=== PATIENT | female | born 1990 | race Caucasian/White ===

== ENCOUNTER 2023-07-13 07:30 | Outpatient (CLI) | payer MEDICAID ==
[~2023-07-13 07:30] MED LIST: iohexol 300mg/ml 100ml inj. ONE
== END 2023-07-13 23:59 | disposition home or self-care (01) ==
LOC: RAD 07:30
PROVIDERS: ATTEND Internal Medicine Hematology & Oncology
DX: C50.412 Malignant neoplasm of upper-outer quadrant of left female breast (principal); Z17.0 Estrogen receptor positive status [ER+]; R16.0 Hepatomegaly, not elsewhere classified; R60.9 Edema, unspecified
CPT/HCPCS: 71260; 74177; J3490; Q9967

== ENCOUNTER 2023-12-15 08:04 | Inpatient (IN) | payer MEDICAID ==
[2023-12-09 16:13] LABS: BASOPHILS # (AUTO) 0.1 X10'3 (0-0.2); BASOPHILS % (AUTO) 0.7 % (0-1); EOSINOPHILS # (AUTO) 0.2 X10'3 (0-0.9); EOSINOPHILS % (AUTO) 2.4 % (0-6); LYMPHOCYTES # (AUTO) 2.3 X10'3 (1.1-4.8); LYMPHOCYTES % (AUTO) 29.3 % (21-51); MEAN CORPUSCULAR HEMOGLOBIN 29.1 PG (27.0-31.0); MEAN CORPUSCULAR HGB CONC 33.6 g/dL (33.0-36.5); MEAN CORPUSCULAR VOLUME 86.5 FL (78-98); MEAN PLATELET VOLUME 7.1 FL (7.4-10.4); MONOCYTES # (AUTO) 0.6 X10'3 (0-0.9); MONOCYTES % (AUTO) 7.5 % (2-12); NEUTROPHILS # (AUTO) 4.7 X10'3 (1.8-7.7); NEUTROPHILS % (AUTO) 60.1 % (42-75); PRE OP HEMATOCRIT 38.1 % (35.0-45.0); PRE OP HEMOGLOBIN 12.8 g/dL (12.0-16.0); PRE OP PLATELET COUNT 273 X10'3 (140-440); PRE OP WHITE BLOOD COUNT 7.7 10'3 (4.8-10.8); RED BLOOD COUNT 4.41 X10'6 (4.20-5.60); RED CELL DISTRIBUTION WIDTH 17.3 % (11.5-14.5)
[2023-12-09 16:39] LABS: ALBUMIN 3.6 G/DL (3.4-5.0); ALBUMIN/GLOBULIN RATIO 1.2 (1.1-1.5); ALKALINE PHOSPHATASE 43 IU/L (46-116); BLOOD UREA NITROGEN 14 MG/DL (7-18); BUN/CREATININE RATIO 16.1 (10.0-20.0); CALCIUM 8.9 MG/DL (8.5-10.1); CHLORIDE 105 MMOL/L (99-107); CREATININE 0.87 MG/DL (0.40-0.90); PRE OP ALT 14 U/L (30-65); PRE OP ANION GAP 7 (8-16); PRE OP AST 18 U/L (10-37); PRE OP BILIRUB, TOTAL 0.6 MG/DL (0.0-1.0); PRE OP GLUCOSE 71 MG/DL (70-104); PRE OP INR 1.1 INR; PRE OP POTASSIUM 3.9 MMOL/L (3.4-5.1); PRE OP PROTIME 11.9 SECONDS (9.0-12.0); PRE OP SODIUM 141 MMOL/L (135-145); TOTAL CARBON DIOXIDE 29.5 MMOL/L (24-32); TOTAL PROTEIN 6.6 G/DL (6.4-8.2); eGFR 75 ML/MIN
[2023-12-09 16:46] LABS: HCG SERUM QL NEGATIVE
[~2023-12-15] VITALS: Ht 157.5 cm; Wt 61.4 kg
[2023-12-15] VITALS (23 sets, daily range): BP systolic 96–117; BP diastolic 63–83; PULSE 63–101; RESP 11–24; TEMP 98–98.2; O2SAT 95–99
[2023-12-15] MEDS: NORMAL SALINE IV ONE (05:30)
[2023-12-15] MEDS: GENTAMICIN IV ONE (05:30)
[~2023-12-15 08:04] MED LIST changes: +GABA-530 PO; +HYDR-3965 PO; -iohexol 300mg/ml 100ml inj. ONE
[2023-12-15] MEDS: ringers solution, lacted 1,000 ML IV SCH ×3 (08:51→15:10)
[2023-12-15] MEDS: famotidine 20mg tablet PO ONE (08:51)
[2023-12-15] MEDS: clindamycin-Cleocin 900mg/D5W 50 ML IV ONE (09:08)
[2023-12-15] MEDS: BUPIVAcaine 2.5mg/ml inj 50ml vial (contains preservative) ONE (09:37)
[2023-12-15] MEDS: BUPIVACAINE liposomal/PF 13.3 MG/ML vial IM ONE (09:37)
[2023-12-15] MEDS: methylene blue (5mg/ml) 50mg/10ml ampul IV ONE (09:37)
[2023-12-15] MEDS ORDERED: dexamethasone sod phosphate 4mg/ml inj. ONE ×2 (10:03→11:13)
[2023-12-15] MEDS ORDERED: propofol inj 20 ML IV ONE (10:03)
[2023-12-15] MEDS ORDERED: fentaNYL/PF 50MCG/1 ML 2ML syringe ONE ×2 (10:03→11:03)
[2023-12-15] MEDS ORDERED: LIDOcaine 2% (20mg/ml) 5ml vial ONE (10:03)
[2023-12-15] MEDS ORDERED: ROPIVAcaine 0.5% (5mg/ml) 30ml vial ONE ×3 (10:03)
[2023-12-15] MEDS ORDERED: rocuronium 10mg/ml inj IV ONE ×3 (10:04→13:08)
[2023-12-15] MEDS ORDERED: sevoflurane 250ml liquid IH ONE (10:10)
[2023-12-15] MEDS ORDERED: neostigmine methylsulfate 1 MG/ML 10ml vial ONE (14:10)
[2023-12-15] MEDS ORDERED: glycopyrrolate 0.2mg/ml inj ONE (14:10)
[2023-12-15] MEDS ORDERED: LIDOcaine 1%/PF 5ML 10 MG/ML VIAL ONE (14:15)
[2023-12-15] MEDS ORDERED: ondansetron/PF 4mg/2ml inj ONE (14:15)
[2023-12-15] MEDS ORDERED: morphine 2 MG/ML inj. syringe IV PRN (14:40)
[2023-12-15] MEDS ORDERED: enalaprilat dihydrate 2.5mg/2ml vial IV PRN (14:40)
[2023-12-15] MEDS ORDERED: meperidine/PF 25mg/ml syringe IV PRN ×3 (14:40)
[2023-12-15] MEDS ORDERED: morphine 4 MG/ML inj SYRINge IV PRN (14:40)
[2023-12-15] MEDS ORDERED: labetalol 20mg/4ml (5mg/ml) syringe IV PRN (14:40)
[2023-12-15] MEDS: ondansetron/PF 4mg/2ml inj IV PRN ×2 (14:54→19:44)
[2023-12-15] MEDS: proCHLORperazine 10 MG/2 ml inj IV PRN (15:04)
[2023-12-15] MEDS: morphine 2 MG/ML inj. syringe IV PRN (17:41)
[2023-12-15] MEDS ORDERED: gentamicin in saline, iso-osm 80 MG/50 ML premix IV SCH (19:00)
[2023-12-15] MEDS: HYDROcodone/acetaminophen 5mg/325mg tablet PO PRN (19:47)
[2023-12-15] MEDS: gentamicin inj 80 MG in normal saline 100ml IV soln 100 ML IV SCH (19:51)
[2023-12-15] MEDS: clindamycin-Cleocin 900mg/D5W 50 ML IV SCH (20:06)
[2023-12-16] VITALS: BP 100/68; PULSE 67; O2SAT 96
[2023-12-16] MEDS: Melatonin 3mg tablet PO ONE (01:13)
[2023-12-16 04:00] VITALS: BP 98/53; PULSE 56; TEMP 97.9; O2SAT 98
[2023-12-16 05:45] LABS: BASOPHILS % (AUTO) 0.1 % (0-1); EOSINOPHILS % (AUTO) 0 % (0-6); HEMATOCRIT 29.4 % (35.0-45.0); HEMOGLOBIN 9.8 g/dl (12.0-16.0); LYMPHOCYTES # (AUTO) 0.8 X10'3 (1.1-4.8); LYMPHOCYTES % (AUTO) 6.7 % (21-51); MEAN CORPUSCULAR HGB CONC 33.2 g/dL (33.0-36.5); MEAN CORPUSCULAR VOLUME 87.2 FL (78-98); MONOCYTES # (AUTO) 0.7 X10'3 (0-0.9); MONOCYTES % (AUTO) 6.3 % (2-12); NEUTROPHILS # (AUTO) 10.1 X10'3 (1.8-7.7); NEUTROPHILS % (AUTO) 86.9 % (42-75); PLATELET COUNT 231 X10'3 (140-440); RED BLOOD COUNT 3.38 X10'6 (4.20-5.60); RED CELL DISTRIBUTION WIDTH 17.6 % (11.5-14.5); WHITE BLOOD COUNT 11.6 X10'3 (4.5-11.0)
[2023-12-16 06:00] VITALS: BP 93/64; PULSE 73; RESP 19; TEMP 98.2; O2SAT 98
[2023-12-16 10:00] VITALS: BP 117/78; PULSE 92; RESP 18; TEMP 98; O2SAT 98
[2023-12-16] MEDS: diphenhydrAMINE 50 mg/ml inj IM ONE (12:24)
[2023-12-16 14:06] VITALS: RESP 16
[2023-12-16 15:18] VITALS: RESP 16
== END 2023-12-16 16:15 | disposition home or self-care (01) | DRG 363 ==
LOC: PRE-OP 08:04 → PAS IN 15:20 → OBSVTOIN 15:20 → SUR 3N 17:35
PROVIDERS: ADMIT Surgery; ATTEND Surgery
PROC: 07B60ZX Excision of Left Axillary Lymphatic, Open Approach, Diagnostic (ICD-10-PCS; 2023-12-15)
PROC: 0HBV0ZZ Excision of Bilateral Breast, Open Approach (ICD-10-PCS; principal; 2023-12-15 10:10)
DX: C50.412 Malignant neoplasm of upper-outer quadrant of left female breast (principal); Z88.0 Allergy status to penicillin; Z92.21 Personal history of antineoplastic chemotherapy
CPT/HCPCS: 36415; 76098; 80053; 82948; 84703; 85025; 85610; 85730; 86885; 86900; 86901; 93005; A4215; A4618; A6253; A6258; A6449; A7000; C9250; C9290; G0378; J0780; J1100; J1200; J1580; J2270; J2405; J2704; J2710; J2795; J3010; J3490; J7120; Q9968

== ENCOUNTER 2024-06-14 05:26 | Day surgery (SDC) | payer MEDICAID ==
[2024-06-09 15:11] LABS: BASOPHILS % (AUTO) 0.6 % (0-1); EOSINOPHILS # (AUTO) 0.1 X10'3 (0-0.9); EOSINOPHILS % (AUTO) 1.1 % (0-6); LYMPHOCYTES # (AUTO) 0.9 X10'3 (1.1-4.8); LYMPHOCYTES % (AUTO) 17.7 % (21-51); MEAN CORPUSCULAR HEMOGLOBIN 28.5 PG (27.0-31.0); MEAN CORPUSCULAR HGB CONC 34.4 g/dL (33.0-36.5); MEAN CORPUSCULAR VOLUME 82.7 FL (78-98); MEAN PLATELET VOLUME 7.8 FL (7.4-10.4); MONOCYTES # (AUTO) 0.4 X10'3 (0-0.9); MONOCYTES % (AUTO) 7.5 % (2-12); NEUTROPHILS # (AUTO) 3.7 X10'3 (1.8-7.7); NEUTROPHILS % (AUTO) 73.1 % (42-75); PRE OP HEMATOCRIT 36.7 % (35.0-45.0); PRE OP HEMOGLOBIN 12.6 g/dL (12.0-16.0); PRE OP PLATELET COUNT 162 X10'3 (140-440); PRE OP WHITE BLOOD COUNT 5.1 10'3 (4.8-10.8); RED BLOOD COUNT 4.44 X10'6 (4.20-5.60); RED CELL DISTRIBUTION WIDTH 15.2 % (11.5-14.5)
[2024-06-09 15:24] LABS: ALBUMIN 3.6 G/DL (3.4-5.0); ALBUMIN/GLOBULIN RATIO 1.1 (1.1-1.5); ALKALINE PHOSPHATASE 46 IU/L (46-116); BLOOD UREA NITROGEN 9 MG/DL (7-18); BUN/CREATININE RATIO 10.6 (10.0-20.0); CALCIUM 8.6 MG/DL (8.5-10.1); CHLORIDE 106 MMOL/L (99-107); CREATININE 0.85 MG/DL (0.40-0.90); PRE OP ALT 22 U/L (30-65); PRE OP ANION GAP 6 (8-16); PRE OP AST 29 U/L (10-37); PRE OP BILIRUB, TOTAL 0.7 MG/DL (0.0-1.0); PRE OP GLUCOSE 77 MG/DL (70-104); PRE OP POTASSIUM 3.6 MMOL/L (3.4-5.1); PRE OP SODIUM 140 MMOL/L (135-145); TOTAL CARBON DIOXIDE 28.5 MMOL/L (24-32); TOTAL PROTEIN 6.8 G/DL (6.4-8.2); eGFR 77 ML/MIN
[2024-06-14] VITALS (10 sets, daily range): BP systolic 95–120; BP diastolic 54–82; PULSE 64–83; RESP 9–16; TEMP 98.4; O2SAT 97–100
[~2024-06-14] VITALS: Ht 157.5 cm; Wt 52.0 kg
[~2024-06-14 05:26] MED LIST changes: -GABA-530 PO; -HYDR-3965 PO; +TAMO20TA4 PO
[2024-06-14] MEDS: famotidine 20mg tablet PO ONE (06:27)
[2024-06-14] MEDS: ringers solution, lacted 1,000 ML IV SCH (06:28)
[2024-06-14] MEDS: NORMAL SALINE IV ONE (06:29)
[2024-06-14] MEDS: GENTAMICIN IV ONE (06:29)
[2024-06-14] MEDS: clindamycin-Cleocin 900mg/D5W 50 ML IV ONE (06:29)
[2024-06-14] MEDS ORDERED: methylene blue (5mg/ml) 50mg/10ml ampul IV ONE (06:35)
[2024-06-14] MEDS ORDERED: BUPIVAcaine/PF 2.5mg/ml (0.25%) 10ml vial ONE (06:36)
[2024-06-14] MEDS ORDERED: LIDOcaine 1% (10mg/ml)w/preservative inj. 20ml MDV ONE (06:36)
[2024-06-14 07:07] LABS: URINE HCG NEGATIVE (NEG)
[2024-06-14] MEDS: LIDOcaine 1% 30ml preserv. free vial IJ ONE (08:00)
[2024-06-14] MEDS ORDERED: morphine 2 MG/ML inj. syringe IV PRN (08:40)
[2024-06-14] MEDS ORDERED: labetalol 20mg/4ml (5mg/ml) syringe IV PRN (08:40)
[2024-06-14] MEDS ORDERED: proCHLORperazine 10 MG/2 ml inj IV PRN (08:40)
[2024-06-14] MEDS ORDERED: enalaprilat 1.25mg/ml 2ml vial IV PRN (08:40)
[2024-06-14] MEDS ORDERED: meperidine/PF 25mg/ml syringe IV PRN ×3 (08:40)
[2024-06-14] MEDS ORDERED: ondansetron/PF 4mg/2ml inj IV PRN (08:40)
[2024-06-14] MEDS ORDERED: morphine 4 MG/ML inj SYRINge IV PRN (08:40)
[2024-06-14] MEDS ORDERED: ringers solution, lacted 1,000 ML IV SCH (08:40)
== END 2024-06-14 10:03 | disposition home or self-care (01) ==
LOC: PAS 05:26
PROVIDERS: ATTEND Surgery
DX: C50.812 Malignant neoplasm of overlapping sites of left female breast (principal); C50.912 Malignant neoplasm of unspecified site of left female breast; Z98.890 Other specified postprocedural states; Z88.0 Allergy status to penicillin; Z79.899 Other long term (current) drug therapy
CPT/HCPCS: 19303; 36415; 80053; 81025; 82948; 85025; J1580; J2003; J3490; J7030; J7120; Z7506; Z7508; Z7512; A4215; A4618; A6253; A6258; A7000; Q9968